=== PATIENT | female | born 1975 | race Caucasian/White ===

== ENCOUNTER 2020-04-20 11:41 | Emergency (ER) | payer MEDICAID ==
[~2020-04-20] VITALS: Ht 167.6 cm; Wt 64.0 kg
[2020-04-20 12:53] LABS: BASOPHILS % 0.8 % (0.0-2.0); EOSINOPHILS % 2.4 % (0.0-5.0); HEMOGLOBIN. 8.7 g/dL (12.0-16.0); LYMPHOCYTES % 21.5 % (20.0-50.0); MEAN CORPUSCULAR HEMOGLOBIN 20.4 pg (28.0-32.0); MEAN CORPUSCULAR VOLUME 65.5 fL (81.0-99.0); MEAN PLATELET VOLUME 8.6 fl (7.4-10.4); MONOCYTES % 8.1 % (2.0-8.0); NEUTROPHILS % 67.2 % (40.0-76.0); PLATELET 373 x1000/uL (130-400); RED BLOOD CELL COUNT 4.27 mill/uL (4.2-5.4); RED CELL DISTRIBUTION WIDTH 20.1 % (11.6-14.6)
[2020-04-20 13:09] LABS: CHLORIDE 107 mEq/L (98-107)
[2020-04-20 13:17] LABS: HCG SCREEN POSITIVE
[2020-04-20 13:19] LABS: PLATELET ESTIMATE NORMAL
[2020-04-20 14:54] LABS: CLARITY URINE CLEAR (CLEAR); COLOR URINE YELLOW (YELLOW); KETONES URINE TRACE (NEGATIVE); LEUKOCYTE ESTERASE URINE NEGATIVE (NEGATIVE); NITRITE URINE NEGATIVE (NEGATIVE); OCCULT BLOOD URINE 2+ (NEGATIVE); PH URINE 5.5 (4.5-8.0); PROTEIN URINE 1+ (NEGATIVE); SPECIFIC GRAVITY URINE 1.026 (1.005-1.030); UROBILINOGEN URINE 0.2 E.U./dL (0.2-1.0)
[2020-04-20 17:26] VITALS: BP 142/84
[2020-04-20] MEDS ORDERED: MISOPROSTOL 200MCG TABLET PO NR (18:30)
[2020-04-20] MEDS ORDERED: ACETAMINOPHEN 325MG TABLET PO ONE (18:30)
== END 2020-04-20 19:44 | disposition home or self-care (01) ==
LOC: ER 11:54
DX: R56.9 Unspecified convulsions (principal); O03.9 Complete or unspecified spontaneous abortion without complication
CPT/HCPCS: 36415; 70496; 70498; 76801; 80053; 81003; 81025; 84484; 84702; 84703; 85025; 99285